=== PATIENT | female | born 1990 | race Caucasian/White ===

== ENCOUNTER 2016-10-19 23:26 | Emergency (ER) | payer MEDICAID ==
[~2016-10-19] VITALS: Ht 162.6 cm; Wt 61.0 kg
[2016-10-19 23:30] VITALS: BP 188/121; PULSE 88; RESP 18; TEMP 98.4; O2SAT 100
[2016-10-19] MEDS ORDERED: TETANUS/DIPHTHERIA TOXOID ADULT 0.5 ML VIAL IM ONE (23:45)
[2016-10-19] MEDS ORDERED: AMPICILLIN-SULBACTAM INJ 3 GM in SODIUM CHLORIDE 0.9% INJ 100 ML IV ONE (23:45)
[2016-10-19] MEDS ORDERED: KETOROLAC TROMETHAMINE 30 MG/ML (IVP) VIAL IV PUSH ONE (23:45)
[2016-10-19 23:53] VITALS: BP 179/107; PULSE 81; RESP 17; O2SAT 99
--- NOTE | 2016-10-20 00:45 | RADRPT ---
EXAM DATE/TIME: 10/20/2016 00:22 [place] COMPARISON: No previous studies available for comparison. INDICATIONS : Dog bite. MEDICAL HISTORY : None. SURGICAL HISTORY : None. ENCOUNTER: Initial ACUITY: 1 day PAIN SCORE: 7/10 LOCATION: Left upper extremity hand. FINDINGS: Three view examination of the left hand demonstrates a linear, simple fracture through the mid diaphy sis of the fourth metacarpal with no significant displacement. CONCLUSION: Fracture through the mid diaphysis of the fourth metacarpal as above. Calos Estes MD on October 20, 2016 at 0:42 Board Certified Radiologist. This report was verified electronically.
--- NOTE | 2016-10-20 01:05 | PD ---
HPI Chief Complaint: Bite or Sting Time Seen by Provider: 23:42 Travel History International Travel<30 days: No Contact w/Intl Traveler<30days: No Traveled to known affect area: No History of Present Illness HPI 26-year-old female presents to the emergency department for complaint of pain associated with dog bite. Just prior to arrival to the emergency department approximately 11 PM patient was bitten by her boyfriend's black Labrador retriever. According to the boyfriend's dog is very skittish and easily startled and just as his mother coughed, the patient moves her hand and the dog bit her. Patient sustained 4 puncture wounds to the left hand. Patient is right-handed. According to the boyfriend the dog's vaccines are current. Patient does not know her tetanus status. Patient is right-handed. Patient last ate around 7 PM. Patient rates pain as 7/10 intensity. Patient does not report any paresthesias of the digits. Patient notes pain with flexion extension of the digits. Patient denies other injury. Patient denies . [facility] Past Medical History Narrative Medical Denies past medical history denies surgical history; no tobacco use; nursing notes reviewed Medical History: Denies Significant Hx Tetanus Vaccination: Unknown Influenza Vaccination: No ?: Unknown LMP: 10/12/2016 Past Surgical History Surgical History: No Previous Surgery Social History Alcohol Use: No Tobacco Use: No Substance Use: No Allergies-Medications (Allergen,Severity, Reaction): Coded Allergies: No Known Allergies (Unverified , 10/20/16) Reported Meds & Prescriptions Reported Meds & Active Scripts Active Zofran Odt (Ondansetron Odt) 4 Mg Tab 4 Mg SL Q6HR PRN Lortab (Hydrocodone-Acetaminophen) 5-325 Mg Tab 1 Tab PO Q6H PRN Augmentin (Amoxicillin-Clavulanate) 875-125 Mg Tab 1 Tab PO BID 10 Days Review of Systems Except as stated in HPI: all other systems reviewed are Neg General / Constitutional: No: Fever, Chills HENT: No: Congestion Cardiovascular: No: Chest Pain or Discomfort Gastrointestinal: No: Abdominal Pain Genitourinary: No: Flank Pain Musculoskeletal: Positive: Pain (left hand) Skin: Positive Other (multiple puncture wounds status post dog bite) Neurologic: No: Weakness, Paresthesia Psychiatric: Positive: Anxiety Hematologic/Lymphatic: No: Easy Bruising Physical Exam Narrative GENERAL: Well-developed well-nourished female in obvious discomfort no respiratory distress SKIN: Warm and dry. HEAD: Normocephalic. EYES: No scleral icterus. No injection or drainage. NECK: Supple, trachea midline. No JVD or lymphadenopathy. CARDIOVASCULAR: Regular rate and rhythm without murmurs, gallops, or rubs. RESPIRATORY: Breath sounds equal bilaterally. No accessory muscle use. GASTROINTESTINAL: Abdomen soft, non-tender, nondistended. MUSCULOSKELETAL: No cyanosis, or edema. Attention left hand dorsal aspect puncture wound overlying the mid fourth metacarpal shaft location and a smaller puncture wound just lateral to the second metacarpal distal one third on the palmar aspect there is a puncture wound of the thenar eminence and overlying the location of the distal fifth metacarpal sparing the joints patient has intact range of motion of the thumb with suction extension and abduction and abduction and has intact thumb apposition for the index finger but is unable to perform thumb apposition secondary to pain regarding the middle fourth and fifth digits patient does demonstrate intact flexion of the digits 1 through 5 with intact sensation and capillary refill less than 2 seconds per digit. BACK: Nontender without obvious deformity. No CVA tenderness. Data Data Last Documented VS Vital Signs Date Time Temp Pulse Resp B/P Pulse Ox O2 Delivery O2 Flow Rate FiO2 10/20/16 01:56 78 18 98 10/20/16 01:49 136/88 Room Air 10/19/16 23:30 98.4 Orders Ed Urine Pregnancytest Poc (10/19/16 23:42) Hand, Complete (Qdd4hpo) (10/19/16 ) Tetanus/Diphtheria Tox Adult (Tetanus/Di (10/19/16 23:45) Ampicillin-Sulbactam Inj (Unasyn Inj) (10/19/16 23:45) Ketorolac Inj (Toradol Inj) (10/19/16 23:45) Wound Culture And Gram Stain (10/19/16 23:42) Wound Care (10/19/16 23:42) Ice/Cold Pack (10/19/16 23:42) Splint Or Brace Apply/Monitor (10/20/16 01:14) Wound Care (10/20/16 01:14) Acetamin-Hydrocod 325-5 Mg (Leonard 5-325 (10/20/16 01:15) MDM Medical Decision Making Medical Screen Exam Complete: Yes Emergency Medical Condition: Yes Medical Record Reviewed: Yes Interpretation(s) X-ray left hand: per reading radiologist linear simple fracture through the mid diaphysis of the fourth metacarpal with no significant displacement Differential Diagnosis Puncture wound, neurovascular tendon injury, fracture, retained foreign body Narrative Course IV access obtained patient administered Unasyn 3 g IV piggyback Toradol 30 mg IV patient kept nothing by mouth tetanus status updated [id number] hCG negative imaging studies ordered wound culture obtained and site irrigated and soaked in dilute Betadine Patient reports pain has improved after pain medication administered Imaging study shows a simple linear fracture through the mid diaphysis of the fourth metacarpal there is a puncture wound overlying the location of the mid shaft of the fourth metacarpal. Physician Communication Physician Communication case discussed with supervisor nutritional yeast hand surgeon Dr Prabhakar --- splint follow up Friday in office Diagnosis Primary Impression: Hand fracture, left Qualified Code: S62.92XB - Open fracture of left hand, initial encounter Additional Impressions: Puncture wound of hand without foreign body Qualified Code: S61.432A - Puncture wound of left hand without foreign body, initial encounter Dog bite Qualified Code: W54.0XXA - Dog bite, initial encounter Referrals: Mildred Prabhakar MD 2 days Patient Instructions: Narcotic given in the ED, General Instructions Additional Instructions: Wear splint and keep site clean and dry Elevate left upper extremity May apply ice intermittently to areas soft tissue swelling over the next 12-24 hours Take pain medication as prescribed as needed Complete course of antibiotic as prescribed Follow-up with hand surgeon Dr. Prabhakar on Friday call office to confirm appointment Return to the emergency department for any concerns such as fever pain swelling bleeding drainage or change in condition No work 2 days Med/Other Pt SpecificInfo: Prescription(s) given Scripts Ondansetron Odt (Zofran Odt)4 Mg Tab4 Mg SL Q6HR PRN (Nausea/Vomiting) #10 TAB Ref 0 Prov:Cherelle Cline MD 10/20/16 Hydrocodone-Acetaminophen (Lortab)5-325 Mg Tab1 Tab PO Q6H PRN (PAIN) #12 TAB Ref 0 Prov:Cherelle Cline MD 10/20/16 Amoxicillin-Clavulanate (Augmentin)875-125 Mg Tab1 Tab PO BID 10 Days Ref 0 Prov:Cherelle Cline MD 10/20/16 Disposition: 01 DISCHARGE HOME Condition: Stable Cherelle Cline MD Oct 20, 2016 01:05
[2016-10-20] MEDS ORDERED: ACETAMINOPHEN/HYDROcodone 325 MG/5 MG TAB PO ONE (01:15)
[2016-10-20] MEDS ORDERED: HYDR-3533 PO (01:19)
[2016-10-20] MEDS ORDERED: ZOFR4TAB3 SL (01:19)
[2016-10-20] MEDS ORDERED: AUGM875T3 PO (01:19)
[2016-10-20 01:49] VITALS: BP 136/88; PULSE 76; RESP 18; O2SAT 99
== END 2016-10-20 02:11 | disposition home or self-care (01) ==
LOC: PHED 23:26
DX: S62.395B Other fracture of fourth metacarpal bone, left hand, initial encounter for open fracture (principal); W54.0XXA Bitten by dog, initial encounter; Z23 Encounter for immunization
CPT/HCPCS: 29125; 73130; 84703; 87070; 90471; 90714; 96365; 96375; 99284; J0295; J1885; 87205